=== PATIENT | female | born 1995 | race Asian ===

== ENCOUNTER 2021-08-13 08:13 | Emergency (ER) | payer BC ==
[~2021-08-13] VITALS: Ht 160 cm; Wt 57.6 kg
--- NOTE | 2021-08-13 08:20 | NUR ---
Patient to ER bed 4 to [facility] for evaluation. Side rails up. Report given to Frances DUMONT. Addendum: 08/13/21 at 0820 by [email or web address] Patient to ER bed 4 to [facility] for evaluation. Side rails up. Report given to Frances ARTEAGA
[2021-08-13 08:21] VITALS: BP_SYST 109
--- NOTE | 2021-08-13 08:25 | NUR ---
Pt presents to ER bib self cc: Abd. Vlad r/t constipation.Pain level 910. Pt last BM 72 hours ago, last intake of food yesterday. Pt states drinking water to relieve constipation. Pt educated on diet and activity for motility improvement. [id number] pt in resting left side laying position, rails up bed down. No previous Med.HX frequent constipation issues as stated by patient.
--- NOTE | 2021-08-13 08:30 | NUR ---
ER at bedside examining patient.
[2021-08-13] MEDS ORDERED: MAGNESIUM CITRATE 300 ML ORAL SOLUTION PO ONE (09:30)
--- NOTE | 2021-08-13 10:00 | NUR ---
Pt tolerated magnesium citrate and steadily walked to the restroom. Pt states " I am ready to go home now."
--- NOTE | 2021-08-13 10:30 | NUR ---
Patient given written and verbal discharge instructions and verbalizes understanding. ER MD discussed with patient the results and treatment provided. Patient in stable condition. ID arm band removed. OTC medicine discussed to relieve constipation. Discussed fiber and diet for [employer] for questions provided and answered. Medication side effect fact sheet provided.
[2021-08-13 10:44] VITALS: BP_SYST 109
== END 2021-08-13 10:30 | disposition home or self-care (01) ==
LOC: SED 08:13
DX: K59.00 Constipation, unspecified (principal); R10.30 Lower abdominal pain, unspecified; Z79.899 Other long term (current) drug therapy
CPT/HCPCS: 99282